=== PATIENT | female | born 1990 | race Caucasian/White ===

== ENCOUNTER 2019-11-13 11:11 | Outpatient (CLI) | payer OTHER, SELFPAY ==
[2019-11-13 11:40] LABS: Alanine Aminotransferase 31 U/L (4-35); Albumin Level 4.1 g/dL (3.5-5.1); Alkaline Phosphatase 88 U/L (38-126); Amylase 75 U/L (30-110); Aspartate Amino Transferase 23 U/L (14-36); Bilirubin,Total 0.7 mg/dL (0.2-1.3); Lipase 48 U/L (23-300)
== END 2019-11-13 11:12 | disposition home or self-care (01) ==
LOC: ANHSURGERY 11:14
PROVIDERS: PCP Family Medicine; Visit Provider Surgery
DX: K80.12 Calculus of gallbladder with acute and chronic cholecystitis without obstruction (principal)
CPT/HCPCS: 36415; 80076; 82150; 83690

== ENCOUNTER 2019-11-19 01:42 | Day surgery (SDC) | payer OTHER, SELFPAY ==
[2019-11-11 09:56] VITALS: BMI 43.5
--- NOTE | 2019-11-18 14:03 | WPDANESEPPF ---
Anes - Initial Pre Proc Eval Procedure: Operation Date: 11/19/19 07:30 Proposed Procedures p Laparoscopic Cholecystectomy, Possible Intraoperative Cholangiogram, Possible Open - Kiko Henry MD Date/Time: 11/18/19 14:03 Surgeon: Kiko Henry MD Pre Op Diagnosis: Acute on set Cholecystitis with Cholelithiasis Patient Data Age: 29 Gender: F Height: 5 ft 6 in Weight: 122.47 kg Allergies Allergy/AdvReac Type Severity Reaction Status Date / Time latex Allergy Mild Rash Verified 11/11/19 09:57 Home Medications Medication Instructions Recorded Confirmed Type ondansetron 4 mg PO Q6H PRN #7 tablet 11/06/19 11/11/19 Rx hydrocodone 5 mg-acetaminophen 325 1 tablet PO Q6H PRN #10 tablet 11/11/19 11/11/19 Rx mg tablet Patient hx anesthesia problems: none Family hx anesthesia problems: none PMFSH Past Medical History Medical History (Updated 11/18/19 @ 16:56 by Clif Blair CRNA) Kidney infection Pt has one functioning kidney as a result Morbid obesity hemorrhage UTI (urinary tract infection) Surgical History Surgical History History of section Family History Family History Mother Family history of thyroid disease Family history of hypercholesterolemia Hypertension Patient's mother is in good health Father Diabetes mellitus Cerebrovascular accident Hypertension Patient's father is in good health Family history of cardiovascular disease Sibling Patient's sister is in good health Patient's brother is in good health Social History Social History Smoking status: Former smoker Smoking end date: 10/14/15 Alcohol intake: never Gender identity (if verbalized by the patient): Female Anes - Eval Final PreProcedure Day of Procedure 11/18/19 14:03 Patient weight: morbidly obese Heart: regular rate and rhythm Lungs: clear to auscultation Airway: Mallampati scale class III Neurological: alert and oriented Last oral intake: >/= 8 hours ASA classification: III Emergent: no Anesthetic plan: proceed Anesthesia type and monitoring: general ETT and standard monitoring Informed Consent: The patient's anesthetic plan and its attendant risks and benefits were discussed with the patient/family/POA. Questions were solicited and answers provided to the satisfaction of the patient/family/POA.
--- NOTE | 2019-11-18 16:55 | WPDANESEPP ---
Anes - Eval Pre Procedure Procedure: Operation Date: 11/19/19 07:30 Proposed Procedures p Laparoscopic Cholecystectomy, Possible Intraoperative Cholangiogram, Possible Open - Kiko Henry MD Date/Time: 11/18/19 16:55 Pre Op Diagnosis: Acute on set Cholecystitis with Cholelithiasis Patient Data Age: 29 Gender: F Height: 5 ft 6 in Weight: 122.47 kg Allergies Allergy/AdvReac Type Severity Reaction Status Date / Time latex Allergy Mild Rash Verified 11/11/19 09:57 Home Medications Medication Instructions Recorded Confirmed Type ondansetron 4 mg PO Q6H PRN #7 tablet 11/06/19 11/11/19 Rx hydrocodone 5 mg-acetaminophen 325 1 tablet PO Q6H PRN #10 tablet 11/11/19 11/11/19 Rx mg tablet Patient hx anesthesia problems: none Family hx anesthesia problems: none PMFSH Past Medical History Medical History (Updated 11/18/19 @ 16:56 by Clif Blair CRNA) Kidney infection Pt has one functioning kidney as a result Morbid obesity hemorrhage UTI (urinary tract infection) Surgical History Surgical History History of section Family History Family History Mother Family history of thyroid disease Family history of hypercholesterolemia Hypertension Patient's mother is in good health Father Diabetes mellitus Cerebrovascular accident Hypertension Patient's father is in good health Family history of cardiovascular disease Sibling Patient's sister is in good health Patient's brother is in good health Social History Social History Smoking status: Former smoker Smoking end date: 10/14/15 Alcohol intake: never Gender identity (if verbalized by the patient): Female Exam Day of Procedure 11/18/19 16:55
[2019-11-19] VITALS (12 sets, daily range): BP systolic 133–155; BP diastolic 69–86; PULSE 75–114; RESP 13–20; TEMP 36.5–37.3; O2SAT 93–100
--- NOTE | ~2019-11-19 | XR_ITS ---
XR cholangiogram surg 1st inj DATE: 11/19/2019 09:07 INDICATION: Laparoscopic cholecystectomy for cholelithiasis TECHNIQUE: Cine spot C-arm images of the right upper quadrant during intraoperative cystic duct contr ast material injection COMPARISON: None FINDINGS: There is normal caliber of the common bile duct and common hepatic duct and the visualized opacified intrahepatic bile ducts. No stricture, filling defect or obstruction. Contrast material clifford ws freely into the duodenum, with some reflux into the pancreatic duct as well. IMPRESSION: Normal examination Reviewed, dictated and finalized at [facility] Reviewed, dictated and finalized at [facility]. [facility] IMPRESSION: Normal examination
--- NOTE | 2019-11-19 07:24 | WPDHPUPDATE1 ---
History and Physical Update Update Date/Time: 11/19/19 07:24 History and Physical has been reviewed, including an updated exam of the patient. There are NO changes in the patient's condition. Risks, benefits, and alternatives of a laparoscopic cholecystectomy, possible intraoperative cholangiogram, possible open cholecystectomy have been discussed and questions answered. Patient agrees to proceed with procedure.
[2019-11-19] MEDS: BUPIVACAINE/EPINEPHRINE 0.5% 30 ML VIAL INFILTRATE (07:32)
[2019-11-19] MEDS: ceFAZolin 3 GM/D5W 100 ML 100 ML IVPB (07:32)
[2019-11-19] MEDS: KETOROLAC 30 MG/ML VIAL (*BKC) IV PUSH (09:39)
[2019-11-19] MEDS: LACTATED RINGERS 1,000 ML 30 ML IV CONT ×2 (09:59)
--- NOTE | 2019-11-19 10:01 | PM.PROC ---
Procedure Note - Detailed Date of procedure: 11/19/19 Pre-op diagnosis: Acute on set Cholecystitis with Cholelithiasis Post-op diagnosis: same Procedure performed: Laparoscopic cholecystectomy with intraoperative cholangiogram. Description of procedure: Procedure Details: Patient was seen preoperatively in the holding area and risks, benefits and alternatives confirmed. Patient was taken to the operating room and general anesthesia was induced. A time out was then preformed with the surgery team confirming patient and site of surgery. The abdomen was prepped and draped in the usual sterile fashion. Incision was made just below the umbilicus. Two stay sutures of O- Vicryl were used to elevate the mid-line fascia beneath the umbilicus and a small incision was made under direct vision. The peritoneum was entered. The 12 mm Calderon cannula was introduced under direct vision. First under low flow and then under high flow the abdomen was insufflated with carbon dioxide never exceeding a pressure of 14. Three 5 mm trocars were then introduced under direct vision. The following trocars were introduced under direct vision: a 12 mm in the epigastrium and two 5 mm trocars along the right costal margin. Upon placement of all the trocars it was noted that only the very top inferior surface of the gallbladder could be seen. The omentum was completely covering the inferior surface of the gallbladder. I then spent the next 30 minutes carefully dissecting the omentum off of the underside of the gallbladder. It was densely adhered to the gallbladder and we had to carefully take this down. Eventually we are able to dissect out the triangle of colo. Was able to determine well the cystic duct however it was difficult to tell whether there were 1 or 2 branches of cystic artery since there was not adequate window of safety I decided to go ahead with a cholangiogram. As we did this dissection there was a small hole developed in the mid body of the gallbladder. Several stones at least 1.5 cm in size came out of this hole but they were all extracted with the 10 mm spoon grasper instrument. Eventually we were able to hold this opening closed with a grasper as we finished the cholecystectomy. The gall bladder was grasped and the cystic duct and artery were dissected free and I then clipped the GB side of the cystic duct with an 5 mm endo-clip windlasser. A small hole was made in the cystic duct with endoshears and a cholagio-cath introduced. A cholangiogram was obtained revealing free flow into the cystic duct(which was at least 2 cm in length beyond where we inserted the cholangiogram catheter), common bile duct, common hepatic, right and left hepatic ducts with free flow into the duodenum with no filling defects in the intra nor extrahepatic biliary tree and no dilation. The catheter was removed and the cystic duct was clipped with a 5 mm endoclip-windlasser. The cystic duct was then transected. The cystic artery was then found just cephalad to the cystic duct and was clipped with the Endo clip windlasser. It then was also transected at this point. The gall bladder was removed using electrocautery and then removed in an endobag via the umbilical incision. I did have to enlarge the fascial incision at the umbilical level about 1 cm in order to remove the gallbladder from the body. Because I chose to use a 12 mm port at the epigastric level, prior to closure we used the Elvis cone and a 1. Vicryl to close the fascia at the low level of the epigastric port site. This was passed with a granny needle and a Mila was used to pass the sutured from 1 end to the other. The trocars were removed visualizing hemostasis and the remaining gas evacuated. The large trocar site at the umbilicus was closed with two 0 vicryl figure of 8 suture. The 2 stay sutures mentioned above on either side of the fascia were also tied together to help approximate this midline fascia. Further local anesthetic was placed into e
[2019-11-19] MEDS: HYDROMORPHONE HCL 1 MG/ML INJ 0.5 MG IV PUSH (10:48)
--- NOTE | 2019-11-19 12:17 | SUR.OPER ---
late entry/nursing care plans levi mackey rn
[2019-11-19] MEDS: ONDANSETRON INJ 4 MG/2 ML VIAL IV PUSH (12:19)
== END 2019-11-19 13:18 | disposition home or self-care (01) ==
PROVIDERS: PCP Family Medicine; Visit Provider Surgery
PROC: 0FT44ZZ Resection of Gallbladder, Percutaneous Endoscopic Approach (ICD-10-PCS; CPT 47562; principal; 2019-11-19 07:30)
DX: K80.10 Calculus of gallbladder with chronic cholecystitis without obstruction (principal); Z87.891 Personal history of nicotine dependence; E66.01 Morbid (severe) obesity due to excess calories; Z68.42 Body mass index [BMI] 45.0-49.9, adult
CPT/HCPCS: 47563; 74300; 88304; A9270; J0131; J0690; J1100; J1170; J1885; J2250; J2405; J2704; J3010; J7120; Q9966